=== PATIENT | female | born 1990 | race Caucasian/White ===

== ENCOUNTER 2016-10-20 06:51 | Emergency (ER) | payer BC, MEDICAID ==
[2016-10-20 07:16] VITALS: BP 113/57
[2016-10-20] MEDS ORDERED: PENICILLIN V POTASSIUM 500 MG TABLET PO ONE (07:51)
[2016-10-20] MEDS ORDERED: HYDROCODONE/ACETAMINOPHEN 5-325 MG TABLET PO ONE (07:51)
--- NOTE | 2016-10-20 07:52 | ER Document Report ---
HPI - HPI Patient complains to provider of: dental pain Onset: Other Onset/Duration: Persistent Quality of pain: Achy Pain Level: 5 Context: Patient complains of dental pain from a broken tooth for the past 5 days. Patient denies improvement of symptoms with ecas-ynx-qeysidh ibuprofen. Patient denies any fever. Patient states she did have lower jaw swelling but that has improved. Associated Symptoms: Earache, Other - Dental pain. denies: Fever Exacerbated by: Denies Relieved by: Denies Similar symptoms previously: Yes Recently seen / treated by doctor: No - ROS ROS below otherwise negative: Yes Systems Reviewed and Negative: Yes All other systems reviewed and negative - CONSTITUTIONAL Constitutional: DENIES: Fever, Chills - EENT EENT: REPORTS: Ear Pain Notes: Dental pain - NEURO Neurology: DENIES: Headache - RESPIRATORY Respiratory: DENIES: Trouble Breathing, Coughing - GASTROINTESTINAL Gastrointestinal: DENIES: Nausea, Patient vomiting, Diarrhea - REPRODUCTIVE LMP: 09/30/16 - MUSCULOSKELETAL Musculoskeletal: DENIES: Back Pain, Neck Pain - DERM Skin Color: Normal Skin Problems: None Past Medical History - General Information source: Patient - Social History Smoking Status: Never Smoker Chew tobacco use (# tins/day): No Frequency of alcohol use: None Drug Abuse: None Occupation: none Lives with: Family Family History: Reviewed & Not Pertinent Patient has suicidal ideation: No Patient has homicidal ideation: No Pulmonary Medical History: Reports: Hx Bronchitis Neurological Medical History: Reports: Hx Migraine. 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 Denies: Hx Hyperthyroidism, Hx Hypothyroidism Renal/ Medical History: Denies: Hx Kidney Stones, Hx Peritoneal Dialysis Infectious Medical History: Denies: Hx HIV Surgical Hx: Negative - Immunizations Immunizations up to date: Yes Hx Diphtheria, Pertussis, Tetanus Vaccination: Yes Vertical Provider Document - CONSTITUTIONAL Agree With Documented VS: Yes Exam Limitations: No Limitations General Appearance: WD/WN, No Apparent Distress - INFECTION CONTROL TRAVEL OUTSIDE OF THE [place] IN LAST 30 DAYS: No - HEENT HEENT: Atraumatic, Normocephalic. negative: Pharyngeal Exudate, Pharyngeal Tenderness, Pharyngeal Erythema, Tympanic Membrane Red, Tympanic Membrane Bulging Mouth Diagram: 1 - +Decay, with dental fracture, no gingival swelling, no abscess, no trismus. No sublingual or submental swelling - NECK Neck: Normal Inspection, Supple. negative: Lymphadenopathy-Left, Lymphadenopathy-Right - RESPIRATORY Respiratory: Breath Sounds Normal, No Respiratory Distress O2 Sat by Pulse Oximetry: 98 - CARDIOVASCULAR Cardiovascular: Regular Rate, Regular Rhythm, No Murmur - BACK Back: Normal Inspection - MUSCULOSKELETAL/EXTREMETIES Musculoskeletal/Extremeties: MAEW - NEURO Level of Consciousness: Awake, Alert, Appropriate Motor/Sensory: No Motor Deficit - DERM Integumentary: Warm, Dry, No Rash Course - Vital Signs Vital signs: Temp Pulse Resp BP Pulse Ox 97.4 F 58 L 20 113/57 L 98 10/20/16 06:56 10/20/16 06:56 10/20/16 06:56 10/20/16 06:56 10/20/16 06:56 Discharge - Discharge Clinical Impression: Dental caries, Toothache Condition: Stable Disposition: HOME, SELF-CARE Instructions: Oral Narcotic Medication ([facility]), Penicillin V K ([facility]), Toothache ( [facility]), Dentist Additional Instructions: Return immediately for any new or worsening symptoms Followup with your dental care provider, call tomorrow to make a followup appointment Prescriptions: Hydrocodone/Acetaminophen [[place] 5-325 Tablet] 1 each PO Q4 PRN #15 tablet PRN Reason: Penicillin V Potassium [Penicillin Vk 500 mg Tablet] 500 mg PO BID #20 tablet Referrals: JAKY EASON MD [Primary Care Provider] - Follow up as needed [facility] [Provider Group] - Follow up as needed
== END 2016-10-20 08:03 | disposition home or self-care (01) ==
LOC: ER 06:51
DX: K02.9 Dental caries, unspecified (principal); K08.89 Other specified disorders of teeth and supporting structures; R22.0 Localized swelling, mass and lump, head
CPT/HCPCS: 99282; J3490

== ENCOUNTER 2018-04-09 18:39 | Emergency (ER) | payer BC, MEDICAID ==
[2018-04-09 18:47] VITALS: BP 128/73
--- NOTE | 2018-04-09 20:58 | ER Document Report ---
ED General - General Chief Complaint: Abscess Stated Complaint: ABCESS Time Seen by Provider: 04/09/18 20:41 TRAVEL OUTSIDE OF THE [place] IN LAST 30 DAYS: No - HPI Notes: Patient presents for right medial thigh abscess. She noticed a small area that was sore 2 weeks ago. Over the past few days the area has become more swollen and red. She denies any drainage from the area. She describes the pain as sharp and stabbing. It is worse when her pants rub the area. She denies any relieving factors. She denies any history of abscesses in the past. She has not taken any xsem-fac-wumnoku medication for her symptoms. She denies any fevers, chills, abdominal pain, nausea, vomiting, numbness, weakness, headache. - Related Data Allergies/Adverse Reactions: No Known Allergies Allergy (Verified 10/20/16 07:20) Past Medical History - Social History Smoking Status: Never Smoker Frequency of alcohol use: None Drug Abuse: None Family History: Reviewed & Not Pertinent Patient has suicidal ideation: No Patient has homicidal ideation: No - Medical History Medical History: Negative Pulmonary Medical History: Reports: Hx Bronchitis Neurological Medical History: Reports: Hx Migraine. 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 Denies: Hx Hyperthyroidism, Hx Hypothyroidism Renal/ Medical History: Denies: Hx Kidney Stones, Hx Peritoneal Dialysis Infectious Medical History: Denies: Hx HIV Past Surgical History: Reports: Hx Section - Immunizations Immunizations up to date: Yes Hx Diphtheria, Pertussis, Tetanus Vaccination: Yes Review of Systems - Review of Systems Notes: REVIEW OF SYSTEMS: CONSTITUTIONAL : Denies fever, chills, or sweats. Denies recent illness. EENT: Denies eye, ear, throat, or mouth pain or symptoms. Denies nasal or sinus congestion. CARDIOVASCULAR: Denies chest pain. RESPIRATORY: Denies cough, cold, or chest congestion. Denies shortness of breath, difficulty breathing, or wheezing. GASTROINTESTINAL: Denies abdominal pain. Denies nausea, vomiting, or diarrhea. Denies constipation. GENITOURINARY: Denies difficulty urinating, painful urination and urinary frequency. MUSCULOSKELETAL: Denies neck or back pain or joint pain. SKIN: Right thigh abscess HEMATOLOGIC : Denies easy bruising or bleeding. LYMPHATIC: Denies swollen, enlarged glands. NEUROLOGICAL: Denies altered mental status. Denies headache. Denies weakness or paralysis. Denies problems with gait or speech. Denies sensory or motor loss. PSYCHIATRIC: Denies anxiety or depression. ALL OTHER SYSTEMS REVIEWED AND NEGATIVE. Physical Exam - Vital signs Vitals: Temp Pulse Resp BP Pulse Ox 97.8 F 62 16 128/73 H 99 04/09/18 18:44 04/09/18 18:44 04/09/18 18:44 04/09/18 18:44 04/09/18 18:44 - Notes Notes: PHYSICAL EXAMINATION: GENERAL: Well-appearing, well-nourished and in no acute distress. HEAD: Atraumatic, normocephalic. EYES: Pupils equal round and reactive to light, extraocular movements intact, conjunctiva are normal. ENT: nares patent, oropharynx clear without exudates. Moist mucous membranes. NECK: Normal range of motion, supple without lymphadenopathy LUNGS: Breath sounds clear to auscultation bilaterally and equal. No wheezes rales or rhonchi. HEART: Regular rate and rhythm without murmurs ABDOMEN: Soft, nontender, normoactive bowel sounds. No guarding, no rebound. No masses appreciated. EXTREMITIES: Normal range of motion, no pitting edema. No cyanosis. NEUROLOGICAL: No focal neurological deficits. Moves all extremities spontaneously and on command. PSYCH: Normal mood, normal affect. SKIN: Warm, Dry, normal turgor. Right medial thigh area of induration measuring 2.0 cm x 2.0 cm. No fluctuance. Surrounding erythema measuring 3 cm x 3 cm. Course - Re-evaluation Re-evalutation: 04/09/18 20:56 Vitals reviewed and stable. Patient afebrile and nontoxic appearing. Her right medial thigh has a small area of cellulitis with likely underlying abscess. The area is very indurated and I do not appreciate any fluctuance. Patient was counseled on warm compresses or sitz bath to encourage drainage. She does have surrounding erythema consistent with mild cellulitis and will be started on an antibiotic for management. I do not feel incision and drainage will be beneficial at this point. Patient was told if the area begins to worsen despite antibiotic treatment that she may need incision and drainage at a later date and she should return to the emergency room or see her primary care provider. She is in agreement with this plan and stable at discharge. - Vital Signs Vital signs: Temp Pulse Resp BP Pulse Ox 97.8 F 62 16 128/73 H 99 04/09/18 18:44 04/09/18 18:44 04/09/18 18:44 04/09/18 18:44 04/09/18 18:44 Discharge - Discharge Clinical Impression: Abscess or cellulitis of thigh Condition: Stable Disposition: HOME, SELF-CARE Instructions: Abscess ([facility]), Trimethoprim-Sulfa ([facility]) Prescriptions: Sulfamethoxazole/Trimethoprim [Bactrim Ds Tablet] 1 each PO BID #14 tablet Referrals: JAKY EASON MD [Primary Care Provider] - Follow up in 3-5 days
[2018-04-09] MEDS ORDERED: SULFAMETHOXAZOLE/TRIMETHOPRIM 800-160 MG TABLET PO ONE (21:06)
== END 2018-04-09 21:09 | disposition home or self-care (01) ==
LOC: ER 18:39
DX: L03.115 Cellulitis of right lower limb (principal)
CPT/HCPCS: 99282; J3490

== ENCOUNTER → 2018-05-01 | Outpatient (CLI) | payer MEDICAID ==
--- NOTE | 2018-05-01 12:48 | RADIOLOGY REPORT (SQ) ---
EXAM DESCRIPTION: U/S NON-OB PELVIS TV W/O DOP COMPLETED DATE/TIME: 05/01/2018 12:24 pm REASON FOR STUDY: VAGINAL BLEEDING N93.9 ABNORMAL UTERINE AND VAGINAL BLEEDING, UNSPECIFIED COMPARISON: 03/22/2011 [employer] ultrasound TECHNIQUE: Dynamic and static grayscale images acquired of the pelvis via transvaginal approach and recorded on PACS. Additional selected color Doppler and spectral images recorded. LIMITATIONS: None. FINDINGS: UTERUS: Uterus is 7 x 5 x 3 cm in size ENDOMETRIAL STRIPE: No focal or generalized thickening. No masses. Endometrial stripe 11 mm in thick ness. CERVIX: No nabothian cysts. Closed, 2.5 cm in length. RIGHT OVARY AND DOPPLER: Normal size, 2.6 x 2.3 x 1.6 cm in size. No worrisome masses. Normal arteria l vascular flow without evidence for torsion. LEFT OVARY AND DOPPLER: Normal size, 2.8 x 1.9 x 1.5 cm in size. No worrisome masses. Normal arterial vascular flow without evidence for torsion. FREE FLUID: None noted. OTHER: No other significant finding. IMPRESSION: NORMAL TRANSVAGINAL PELVIC ULTRASOUND. TECHNICAL DOCUMENTATION: JOB ID: [id number] [employer]- All Rights Reserved Rev-12/23 Reading location - IP/workstation name: [email or web address]
== END ==
LOC: WI 11:03
PROVIDERS: ATTEND Family Medicine
DX: N93.9 Abnormal uterine and vaginal bleeding, unspecified (principal)
CPT/HCPCS: 76830

== ENCOUNTER 2019-08-18 20:47 | Emergency (ER) | payer MEDICAID ==
[2019-08-18] MEDS ORDERED: KETOROLAC TROMETHAMINE 60 MG/2 ML SDV IM ONE (21:02)
[2019-08-18] MEDS ORDERED: PHENAZOPYRIDINE HCL 200 MG TABLET PO ONE (21:02)
--- NOTE | 2019-08-18 21:02 | ER Document Report ---
ED General - General Chief Complaint: Pain With Urination Stated Complaint: PAINFUL URINATION Time Seen by Provider: 08/18/19 20:58 Primary Care Provider: JAKY EASON MD [Primary Care Provider] - Follow up in 3-5 days KAVITA VÁZQUEZ MD [NO LOCAL MD] - Follow up in 1 week (for urology follow up for recurrent uti) TRAVEL OUTSIDE OF THE [place] IN LAST 30 DAYS: No - HPI Notes: 29-year-old female to the emergency department with complaints of dysuria that has been going on for over a month. She states that she gets frequent urinary tract infections. She states that she has been on antibiotics recently but she is not sure what it is called. She denies any fevers or chills. She states most of her pain is when she urinates. She does report low back pain as well. She states that she has been getting frequent urinary tract infections ever since she had a baby. She states that she often will have heavy bleeding since then and for little while she was controlled with control. However she is not been on control for at least a year. She states that she either spots or has significant bleeding almost every day. She is constantly wearing a maxi pad. She states she has not seen a [facility] about this and has never seen a urologist about her recurrent urinary tract infections. Her boyfriend later adds that she was given Augmentin yesterday and has had 3 doses. They state that the medicine is not working at all. They do not know if her urine culture was done when she was given antibiotics yesterday. - Related Data Allergies/Adverse Reactions: No Known Allergies Allergy (Verified 08/18/19 20:57) Past Medical History - General Information source: Patient, Friend - Boyfriend - Social History Smoking Status: Current Every Day Smoker Frequency of alcohol use: None Drug Abuse: None Lives with: Spouse/Significant other Family History: Reviewed & Not Pertinent Pulmonary Medical History: Reports: Hx Bronchitis Neurological Medical History: Reports: Hx Migraine. 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 Denies: Hx Hyperthyroidism, Hx Hypothyroidism Renal/ Medical History: Denies: Hx Kidney Stones, Hx Peritoneal Dialysis Infectious Medical History: Denies: Hx HIV Past Surgical History: Reports: Hx Section - Immunizations Immunizations up to date: Yes Hx Diphtheria, Pertussis, Tetanus Vaccination: Yes Review of Systems - Review of Systems Constitutional: denies: Chills, Fever EENT: No symptoms reported Cardiovascular: denies: Chest pain, Palpitations, Heart racing, Orthopnea, Dyspnea, Syncope, Dizziness, Lightheaded Respiratory: denies: Cough, Short of breath Gastrointestinal: denies: Abdominal pain, Diarrhea, Nausea, Vomiting Genitourinary: See HPI, Dysuria, Frequency Female Genitourinary: See HPI, Vaginal bleeding Musculoskeletal: No symptoms reported Skin: No symptoms reported Hematologic/Lymphatic: No symptoms reported Neurological/Psychological: No symptoms reported -: Yes All other systems reviewed and negative Physical Exam - Vital signs Vitals: Temp Pulse Resp BP Pulse Ox 97.1 F 66 18 148/78 H 97 08/18/19 20:48 08/18/19 20:48 08/18/19 20:48 08/18/19 20:48 08/18/19 20:48 Interpretation: Normal - General General appearance: Appears well, Alert In distress: None - HEENT Head: Normocephalic, Atraumatic Eyes: Normal Pupils: PERRL - Respiratory Respiratory status: No respiratory distress Chest status: Nontender Breath sounds: Normal. No: Rales, Rhonchi, Stridor, Wheezing Chest palpation: Normal - Cardiovascular Rhythm: Regular Heart sounds: Normal auscultation Murmur: No - Abdominal Inspection: Normal Distension: No distension Bowel sounds: Normal Tenderness: Nontender. No: Tender, McBurney's point, Carmona's sign, Guarding, Rebound Organomegaly: No organomegaly - Back Back: Normal, Nontender. No: CVA tenderness - Neurological Neuro grossly intact: Yes Cognition: Normal Orientation: AAOx4 [place] Coma Scale Eye Opening: Spontaneous [place] Coma Scale Verbal: Oriented [place] Coma Scale Motor: Obeys Commands Agustin Coma Scale Total: 15 Speech: Normal Cranial nerves: Normal Cerebellar coordination: Normal Motor strength normal: LUE, RUE, LLE, RLE Additional motor exam normals: Equal maritime officer. No: Pronator drift Sensory: Normal - Psychological Associated symptoms: Normal mood, Flat affect - Skin Skin Temperature: Warm Skin Moisture: Dry Skin Color: Normal Course - Re-evaluation Re-evalutation: Impression: Urinary tract infection. Lab work is reassuring. H&H is stable. Urine culture will be obtained. We will go ahead and start her on Macrobid since she says the Augmentin is not working. I have explained to them that we will start that medicine but we will call if the urine culture shows that Macrobid is not a good fit. We will send him with small amount of pain medicine and Pyridium. Since she keeps getting these urinary tract infections I will give her information for follow-up with a urologist. Patient agrees with the plan will discharge home. - Vital Signs Vital signs: Temp Pulse Resp BP Pulse Ox 97.8 F 58 L 16 102/62 96 08/18/19 23:30 08/18/19 23:30 08/18/19 23:30 08/18/19 23:30 08/18/19 23:30 - Laboratory Result Diagrams: 08/18/19 19:15 08/18/19 19:15 Laboratory results interpreted by me: 08/18/19 08/18/19 19:15 19:15 BUN 6 L Glucose 134 H Ur Leukocyte Esterase LARGE H Discharge - Discharge Clinical Impression: Dysuria UTI (urinary tract infection) Qualifiers: Urinary tract infection type: acute cystitis Hematuria presence: without hematuria Qualified Code(s): N30.00 - Acute cystitis without hematuria Condition: Stable Disposition: HOME, SELF-CARE Instructions: Nitrofurantoin ([facility]), Urinary Tract Infection ([facility]) Additional Instructions: FOLLOW UP WITH THE UROLOGIST LISTED BELOW. PUSH FLUIDS. COMPLETE ENTIRE REGIMEN OF ANTIBIOTICS. RETURN IF WORSENING SYMPTOMS. Prescriptions: Nitrofurantoin/Nitrofuran Mac [Macrobid 100 mg Capsule] 1 tab PO BID #14 capsule Phenazopyridine HCl [Pyridium 100 Mg Tablet] 200 mg PO TID PRN #6 tablet PRN Reason: Tramadol HCl [Ultram 50 mg Tablet] 50 mg PO Q6H PRN #6 tab PRN Reason: Referrals: JAKY EASON MD [Primary Care Provider] - Follow up in 3-5 days KAVITA VÁZQUEZ MD [NO LOCAL MD] - Follow up in 1 week (for urology follow up for recurrent uti)
[2019-08-18 21:44] LABS: ABSOLUTE EOSINOPHILS # (AUTO) 0.1 10^3/uL (0.0-0.6); ABSOLUTE LYMPHOCYTES (AUTO) 2.3 10^3/uL (0.5-4.7); ABSOLUTE MONOCYTES (AUTO) 0.5 10^3/uL (0.1-1.4); ABSOLUTE NEUT (AUTO) 5.2 10^3/uL (1.7-8.2); BASOPHILS % (AUTO) 0.3 % (0-2); EOSINOPHILS % (AUTO) 1.2 % (0-6); HEMATOCRIT 38.3 % (36.0-47.0); HEMOGLOBIN 13.3 g/dL (12.0-15.5); LYMPHOCYTES % (AUTO) 28.3 % (13-45); MEAN CORPUSCULAR HGB CONC 34.8 g/dL (32.0-36.0); MEAN CORPUSCULAR VOLUME 89 fl (80-97); RED CELL DISTRIBUTION WIDTH 12.8 % (11.5-14.0); SEGMENTED NEUTROPHILS % (AUTO) 64.2 % (42-78); TOTAL CELLS COUNTED % (AUTO) 100 %; WHITE BLOOD COUNT 8.2 10^3/uL (4.0-10.5)
[2019-08-18 21:49] LABS: APPEARANCE,URINE SLIGHTLY-CLOUDY; BILIRUBIN,URINE NEGATIVE (NEGATIVE); COLOR,URINE YELLOW; GLUCOSE, URINE NEGATIVE (NEGATIVE); KETONES,URINE NEGATIVE (NEGATIVE); LEUKOCYTE ESTERASE,URINE LARGE (NEGATIVE); NITRITE,URINE NEGATIVE (NEGATIVE); PROTEIN,URINE NEGATIVE (NEGATIVE); URINE SPECIFIC GRAVITY 1.005; UROBILINOGEN,URINE NEGATIVE mg/dL (<2.0)
[2019-08-18 21:57] LABS: ANION GAP 10 (5-19); BLOOD UREA NITROGEN 6 mg/dL (7-20); CALCIUM 9.5 mg/dL (8.4-10.2); CARBON DIOXIDE 25 mmol/L (22-30); CHLORIDE 102 mmol/L (98-107); GLUCOSE 134 mg/dL (75-110); POTASSIUM 3.9 mmol/L (3.6-5.0)
[2019-08-18 22:23] LABS: PLATELET COUNT 187 10^3/uL (150-450)
[2019-08-18] MEDS ORDERED: NITROFURANTOIN MONOHYD/M-CRYST 100 MG CAPSULE PO ONE (22:47)
[2019-08-18 23:05] VITALS: BP 102/62
[2019-08-18 23:16] LABS: CHLAM PCR NOT DETECTED (NOT DETECT)
== END 2019-08-18 23:30 | disposition home or self-care (01) ==
LOC: ER 20:47
DX: N30.00 Acute cystitis without hematuria (principal); R30.0 Dysuria; R35.0 Frequency of micturition; M54.5 Low back pain; F17.200 Nicotine dependence, unspecified, uncomplicated; E11.9 Type 2 diabetes mellitus without complications
CPT/HCPCS: 99283; 96372; 36415; 87086; 85025; 81025; 80048; 81001; 87491; 87591; J1885; J3490 ×2; J8499

== ENCOUNTER 2020-05-11 14:08 | Emergency (ER) | payer MEDICAID ==
[2020-05-11 14:18] VITALS: BP 127/75
--- NOTE | 2020-05-11 14:33 | ER Document Report ---
ED Medical Screen (RME) - General Chief Complaint: Pain With Urination Stated Complaint: ABDOMINAL PAIN,PAINFUL URINATION Time Seen by Provider: 05/11/20 14:25 Primary Care Provider: JAKY EASON MD [Primary Care Provider] - Follow up as needed Mode of Arrival: Ambulatory Information source: Patient Notes: HPI; 29-year-old female presents to the emergency room complaining of sinus congestion and postnasal drip for the past 5 days. Denies any fevers. Also complaining of dysuria with abdominal cramping and vaginal discharge for the past 5 days. Took a leftover tramadol without relief. Denies any nausea, no vomiting, PE: Alert and oriented x3. Mild distress noted. Lungs: Clear to auscultation without rales, rhonchi, wheezes. Heart: Regular rate rhythm without murmurs, rubs, gallops. I have greeted and performed a rapid initial assessment of this patient. A comprehensive ED assessment and evaluation of the patient, analysis of test results and completion of the medical decision making process will be conducted by additional ED providers. I have specifically instructed the patient or family members with the patient to immediately return to any nursing staff should anything change in the patient's condition or with their chief complaint. TRAVEL OUTSIDE OF THE [place] IN LAST 30 DAYS: No - Related Data Allergies/Adverse Reactions: No Known Allergies Allergy (Verified 08/18/19 20:57) Past Medical History Pulmonary Medical History: Reports: Hx Bronchitis Neurological Medical History: Reports: Hx Migraine. 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 Denies: Hx Hyperthyroidism, Hx Hypothyroidism Renal/ Medical History: Denies: Hx Kidney Stones, Hx Peritoneal Dialysis Infectious Medical History: Denies: Hx HIV Past Surgical History: Reports: Hx Section - Immunizations Immunizations up to date: Yes Hx Diphtheria, Pertussis, Tetanus Vaccination: Yes Physical Exam - Vital signs Vitals: Temp Pulse Resp BP Pulse Ox 98.3 F 65 16 127/75 H 97 05/11/20 14:16 05/11/20 14:16 05/11/20 14:16 05/11/20 14:16 05/11/20 14:16 Course - Vital Signs Vital signs: Temp Pulse Resp BP Pulse Ox 98.3 F 65 16 127/75 H 97 05/11/20 14:16 05/11/20 14:16 05/11/20 14:16 05/11/20 14:16 05/11/20 14:16 Doctor's Discharge - Discharge Referrals: JAKY EASON MD [Primary Care Provider] - Follow up as needed
[2020-05-11 15:04] LABS: ABSOLUTE EOSINOPHILS # (AUTO) 0.1 10^3/uL (0.0-0.6); ABSOLUTE LYMPHOCYTES (AUTO) 2.5 10^3/uL (0.5-4.7); ABSOLUTE MONOCYTES (AUTO) 0.6 10^3/uL (0.1-1.4); ABSOLUTE NEUT (AUTO) 3.6 10^3/uL (1.7-8.2); BASOPHILS % (AUTO) 0.6 % (0-2); EOSINOPHILS % (AUTO) 1.4 % (0-6); HEMATOCRIT 38.7 % (36.0-47.0); HEMOGLOBIN 13.8 g/dL (12.0-15.5); LYMPHOCYTES % (AUTO) 36.7 % (13-45); MEAN CORPUSCULAR HGB CONC 35.6 g/dL (32.0-36.0); MEAN CORPUSCULAR VOLUME 90 fl (80-97); MONOCYTES % (AUTO) 8.1 % (3-13); PLATELET COUNT 198 10^3/uL (150-450); RED BLOOD COUNT 4.31 10^6/uL (3.72-5.28); RED CELL DISTRIBUTION WIDTH 13.2 % (11.5-14.0); SEGMENTED NEUTROPHILS % (AUTO) 53.2 % (42-78); TOTAL CELLS COUNTED % (AUTO) 100 %; WHITE BLOOD COUNT 6.8 10^3/uL (4.0-10.5)
[2020-05-11 15:05] LABS: APPEARANCE,URINE CLEAR; BILIRUBIN,URINE NEGATIVE (NEGATIVE); COLOR,URINE COLORLESS; GLUCOSE, URINE NEGATIVE (NEGATIVE); KETONES,URINE NEGATIVE (NEGATIVE); LEUKOCYTE ESTERASE,URINE NEGATIVE (NEGATIVE); NITRITE,URINE NEGATIVE (NEGATIVE); PROTEIN,URINE NEGATIVE (NEGATIVE); URINE SPECIFIC GRAVITY 1.001; UROBILINOGEN,URINE NEGATIVE mg/dL (<2.0)
[2020-05-11 15:22] LABS: ALBUMIN 4.6 g/dL (3.5-5.0); ALKALINE PHOSPHATASE 49 U/L (38-126); ANION GAP 10 (5-19); ASPARTATE AMINO TRANSFERASE 44 U/L (14-36); BILIRUBIN,DIRECT 0.3 mg/dL (0.0-0.4); BILIRUBIN,TOTAL 0.3 mg/dL (0.2-1.3); BLOOD UREA NITROGEN 6 mg/dL (7-20); CALCIUM 9.4 mg/dL (8.4-10.2); CARBON DIOXIDE 25 mmol/L (22-30); CHLORIDE 106 mmol/L (98-107); GLUCOSE 90 mg/dL (75-110); POTASSIUM 3.8 mmol/L (3.6-5.0); TOTAL PROTEIN 7.8 g/dL (6.3-8.2)
[2020-05-11] MEDS ORDERED: ACETAMINOPHEN 325 MG TABLET PO ONE (15:31)
--- NOTE | 2020-05-11 16:15 | ER Document Report ---
ED General - General Chief Complaint: Urinary Problem Stated Complaint: ABDOMINAL PAIN,PAINFUL URINATION Time Seen by Provider: 05/11/20 14:25 Primary Care Provider: JAKY EASON MD [Primary Care Provider] - Follow up as needed Mode of Arrival: Ambulatory TRAVEL OUTSIDE OF THE [place] IN LAST 30 DAYS: No - HPI Notes: Patient is a 29-year-old female who presents to the emergency department for evaluation of lower abdominal/pelvic pain. Is been on going for about a week. It comes and goes. She states it is worsened by urination. Nothing seems to make it better. She denies any fevers or chills. No nausea or vomiting. Normal bowel movements. No vaginal discharge. No sores in the area. No history of STIs. She is in his monogamous relationship, is sexually active. She states her last menstrual period was about a week ago, it was shorter than normal, but otherwise unremarkable. She states it was also worse while she was menstruating. - Related Data Allergies/Adverse Reactions: No Known Allergies Allergy (Verified 08/18/19 20:57) Home Medications: None Past Medical History - General Information source: Patient - Social History Smoking Status: Never Smoker Frequency of alcohol use: None Drug Abuse: None Family History: Reviewed & Not Pertinent Pulmonary Medical History: Reports: Hx Bronchitis Neurological Medical History: Reports: Hx Migraine. 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 Denies: Hx Hyperthyroidism, Hx Hypothyroidism Renal/ Medical History: Denies: Hx Kidney Stones, Hx Peritoneal Dialysis Infectious Medical History: Denies: Hx HIV Past Surgical History: Reports: Hx Section - Immunizations Immunizations up to date: Yes Hx Diphtheria, Pertussis, Tetanus Vaccination: Yes Review of Systems - Review of Systems Constitutional: No symptoms reported EENT: No symptoms reported Cardiovascular: No symptoms reported Respiratory: No symptoms reported Gastrointestinal: No symptoms reported Genitourinary: See HPI Female Genitourinary: See HPI Musculoskeletal: No symptoms reported Skin: No symptoms reported Neurological/Psychological: No symptoms reported -: Yes All other systems reviewed and negative Physical Exam - Vital signs Vitals: Temp Pulse Resp BP Pulse Ox 98.3 F 65 16 127/75 H 97 05/11/20 14:16 05/11/20 14:16 05/11/20 14:16 05/11/20 14:16 05/11/20 14:16 - Notes Notes: Vital signs reviewed, please refer to chart. Head is normocephalic, atraumatic. Pupils equal round, reactive to light. Neck is supple without meningismus. Heart is regular rate and rhythm. Lungs are clear to auscultation bilaterally. Abdomen is soft, nontender, normoactive bowel sounds throughout. Extremities without cyanosis, clubbing. Posterior calves are nontender. Peripheral pulses are equal. Skin is warm and dry. Patient is awake, alert, neurological exam is nonfocal. Pelvic exam performed with IV, RN, present. Normal external genitalia. Speculum inserted, scant amount of physiologic appearing discharge noted. Cervix is closed, nonfriable. No cervical motion tenderness. Course - Re-evaluation Re-evalutation: 05/11/20 16:12 Patient presents to the emergency department for evaluation. Laboratory investigations and imaging were ordered as through triage. Still awaiting transvaginal ultrasound, as well as pelvic exam. The patient denies any risk for gonorrhea and chlamydia, but she does understand that these screening tests will be performed when pelvic exam is performed. I do not have a clear etiology for her symptoms at this time, but the patient is comfortable, has no acute complaints at this moment. We will continue to monitor. 05/11/20 17:41 No signs of yeast or significant bacterial vaginosis are noted on exam or on microscopic examination. Trichomonas was not performed because they forgot to put saline in the collection, but I do not have a high suspicion for this infection at this time. I do not have a clear etiology for this patient's pelvic pain. I explained to her that the transvaginal ultrasound was unremarkable, right left ovary was not visualized, but she is not focal enough on exam or severely tender enough on exam for me to have a high amount of concern for torsion or ovarian pathology. She is encouraged to follow-up with her [facility] [employer]. She will be contacted if gonorrhea or chlamydia are positive on testing, but she urine, so I am not inclined to treat empirically. She is to return to the ED with worsening or new concerning symptoms of any sort. - Vital Signs Vital signs: Temp Pulse Resp BP Pulse Ox 98.3 F 65 16 127/75 H 97 05/11/20 14:16 05/11/20 14:16 05/11/20 14:16 05/11/20 14:16 05/11/20 14:16 - Laboratory Result Diagrams: 05/11/20 14:50 05/11/20 14:50 Laboratory results interpreted by me: 05/11/20 14:50 BUN 6 L AST 44 H ALT 54 H - Diagnostic Test Radiology reviewed: Reports reviewed Radiology results interpreted by me: 05/11/20 17:42 Transvaginal US 05/11/20 15:30 IMPRESSION: LEFT OVARY NOT VISUALIZED. OTHERWISE UNREMARKABLE TRANSVAGINAL PELVIC ULTRASOUND. Discharge - Discharge Clinical Impression: Pelvic pain, Dysuria Condition: Stable Disposition: HOME, SELF-CARE Instructions: Pelvic Pain ([facility]) Additional Instructions: No clear cause was found for her pelvic pain today. Tests for gonorrhea and chlamydia were performed, they are still pending at this time. You will be contacted if they become positive. Please follow-up with [facility] [employer] in 1 to 2 weeks. If you develop fevers, increased pain, or any other new or concerning symptoms, please return immediately to the emergency department for evaluation. Referrals: JAKY EASON MD [Primary Care Provider] - Follow up as needed
--- NOTE | 2020-05-11 16:57 | RADIOLOGY REPORT (SQ) ---
EXAM DESCRIPTION: U/S NON OB PEL TV W/DOPPLER IMAGES COMPLETED DATE/TIME: 05/11/2020 4:45 pm REASON FOR STUDY: pelvic pain COMPARISON: 05/01/2018. TECHNIQUE: Dynamic and static grayscale images acquired of the pelvis via transvaginal approach and recorded on PACS. Additional selected color Doppler and spectral images recorded. LIMITATIONS: None. FINDINGS: UTERUS: Contour normal. No mass. ENDOMETRIAL STRIPE: No focal or generalized thickening. No masses. CERVIX: No nabothian cysts. RIGHT OVARY AND DOPPLER: Normal size. No worrisome masses. Normal arterial vascular flow without evid ence for torsion. LEFT OVARY AND DOPPLER: Ovary not visualized due to poor acoustic window. FREE FLUID: None noted. OTHER: No other significant finding. MEASUREMENTS: UTERUS: 2.8 x 4.2 x 7.5 cm. ENDOMETRIAL STRIPE: 3.9 mm. RIGHT OVARY: 2.3 x 2.8 x 3.1 cm. LEFT OVARY: Not visualized. IMPRESSION: LEFT OVARY NOT VISUALIZED. OTHERWISE UNREMARKABLE TRANSVAGINAL PELVIC ULTRASOUND. TECHNICAL DOCUMENTATION: JOB ID: [id number] 2010 [employer]- All Rights Reserved Rev-12/23 Reading location - IP/workstation name: [email or web address]
[2020-05-11 17:14] LABS: BACTERIA (WET MOUNT) 4+ BACTERIA SEEN; EPITHELIALS (WET MOUNT) 3+ EPITHELIALS SEEN; RBCS (WET MOUNT) RARE RBCS SEEN; T.VAGINALIS (WET MOUNT) COULD NOT PERFORM; WBCS (WET MOUNT) 1+ WBCS SEEN; YEAST (WET MOUNT) NO YEAST SEEN
[2020-05-11 18:40] LABS: CHLAM PCR NOT DETECTED (NOT DETECT)
== END 2020-05-11 17:55 | disposition home or self-care (01) ==
LOC: ER 14:08
DX: R30.0 Dysuria (principal); R10.2 Pelvic and perineal pain; R09.81 Nasal congestion
CPT/HCPCS: 99284; 36415; 87210; 84703; 85025; 80053; 81001; 87491; 87591; 76830; 93976; J3490